=== PATIENT | female | born 1975 | race Caucasian/White ===

== ENCOUNTER → 2017-09-13 | Outpatient (CLI) | payer OTHER ==
[~2017-09-13] MED LIST: AMOXICILLIN875 MG PO; ATROVENT15 ML NS; BENTYL 20 MG TA20 M1 PO; BUSPIRONE HCL10 MG PO; CIPRO250 M1 PO; CIPROFLOXACIN500 M1 PO; FLAGYL500 MG PO; FLEXERIL PO; HYDROCODON-ACE1 EAC7 PO; HYDROCODONE-AP1 EAC6 PO; IBUPROFEN 800800 M1 PO; LEXAPRO 10 MG T10 M1 PO; MEDROLDOSEPACK PO; MELOXICAM; NOHOMEMEDICATIONS; NORCO 5-325 TA1 EACH PO; ONDANSETRON HCL4 M2 PO; PERCOCET 5-3251 EACH PO; PHENERGAN 25 MG25 M1 PO; PREDNISONE 10 M10 MG PO; PROTONIX40 M1 PO; ROXICODONE5 M2 PO; TRAMADOL 50 MG50 MG PO; ULTRAM 50MG TAB50 MG PO; ZOFRAN ODT4 MG PO; ZOFRAN ODT4 MG SUBLING
== END ==
LOC: M.MRI 13:28
DX: M48.02 Spinal stenosis, cervical region (principal); M50.21 Other cervical disc displacement, high cervical region; M50.221 Other cervical disc displacement at C4-C5 level; M50.222 Other cervical disc displacement at C5-C6 level; M50.223 Other cervical disc displacement at C6-C7 level; G89.29 Other chronic pain; M79.601 Pain in right arm; M79.602 Pain in left arm

== ENCOUNTER → 2017-09-14 | Outpatient (CLI) | payer OTHER | LOC: M.MRI 09-05 10:57 | DX: M19.011 Primary osteoarthritis, right shoulder (principal); M75.51 Bursitis of right shoulder; G89.29 Other chronic pain; M54.2 Cervicalgia ==

== ENCOUNTER 2018-03-09 23:57 | Emergency (ER) | payer OTHER ==
[~2018-03-09] VITALS: Ht 162.6 cm; Wt 99.8 kg
[~2018-03-09 23:57] MED LIST changes: -BENTYL 20 MG TA20 M1 PO; -ONDANSETRON HCL4 M2 PO; -TRAMADOL 50 MG50 MG PO
[2018-03-10 00:49] LABS: HEMATOCRIT 40.7 % (37.0-47.0); HEMOGLOBIN 13.6 gm/dL (12.0-15.0); MCH 29.8 pg (26.0-34.0); MCHC 33.4 g/dL (28.0-37.0); MCV 89.3 fL (80.0-100.0); MPV 8.6 fl. (7.2-11.1); NUCLEATED RBCS 0 /100WBC; PLATELET COUNT* 246 thou/uL (150-400); RBC 4.56 mil/uL (4.20-5.00); RDW-CV 15.2 % (10.5-14.5)
[2018-03-10 00:51] LABS: CALCIUM 8.6 mg/dL (8.5-10.1); CREATININE 0.7 mg/dL (0.6-1.3)
[2018-03-10 00:55] LABS: ALBUMIN 3.3 g/dL (3.4-5.0); TOTAL BILIRUBIN 0.3 mg/dL (<0.1-1.0)
[2018-03-10 01:37] LABS: URINE BILIRUBIN NEGATIVE (Negative); URINE BLOOD NEGATIVE (Negative); URINE CLARITY CLEAR; URINE COLOR YELLOW; URINE GLUCOSE-RANDOM NEGATIVE (Negative); URINE KETONES NEGATIVE (Negative); URINE LEUKOCYTES-REFLEX NEGATIVE (Negative); URINE NITRITE-REFLEX NEGATIVE (Negative); URINE PROTEIN NEGATIVE (Negative); URINE SPECIFIC GRAVITY >= 1.030 (1.005-1.030); URINE UROBILINOGEN 0.2 E.U./dl (0.2-1.0)
[2018-03-10 02:03] LABS: ABSOLUTE BASOPHILS 0.1 thou/uL (0.0-0.2); ABSOLUTE EOSINOPHILS 0.1 thou/uL (0.0-0.7); ABSOLUTE LYMPHOCYTES 0.6 thou/uL (0.8-5.3); ABSOLUTE MONOCYTES 0.6 thou/uL (0.0-1.2); ABSOLUTE NEUTROPHILS 7.6 thou/uL (1.6-8.1); ANISOCYTOSIS 1+; PLATELET ESTIMATE ADEQUATE
[2018-03-10] MEDS ORDERED: BENTYL 20 MG TA20 M1 PO (02:36)
[2018-03-10] MEDS ORDERED: CIPROFLOXACIN500 M1 PO (02:36)
[2018-03-10] MEDS ORDERED: FLAGYL500 MG PO (02:36)
[2018-03-10] MEDS ORDERED: ONDANSETRON HCL4 M2 PO (02:36)
[2018-03-10] MEDS ORDERED: TRAMADOL 50 MG50 MG PO (02:36)
[2018-03-10 02:50] VITALS: BP 107/68
== END 2018-03-10 02:52 | disposition home or self-care (01) ==
LOC: M.ERS 23:57
PROVIDERS: Emergency Medicine
DX: R19.7 Diarrhea, unspecified (principal); R10.13 Epigastric pain; R11.0 Nausea; Z90.89 Acquired absence of other organs; Z90.49 Acquired absence of other specified parts of digestive tract; Z98.890 Other specified postprocedural states; Z88.5 Allergy status to narcotic agent; Z88.6 Allergy status to analgesic agent

== ENCOUNTER 2018-05-30 20:42 | Inpatient (IN) | payer OTHER ==
[~2018-05-30] VITALS: Ht 162.6 cm; Wt 90.7 kg
[~2018-05-30 20:42] MED LIST changes: +BENTYL 20 MG TA20 M1 PO; +ONDANSETRON HCL4 M2 PO; +TRAMADOL 50 MG50 MG PO
[2018-05-30 20:56] VITALS: BP 133/78
[2018-05-30 21:05] LABS: URINE BILIRUBIN NEGATIVE (Negative); URINE BLOOD NEGATIVE (Negative); URINE CLARITY CLEAR; URINE COLOR YELLOW; URINE GLUCOSE-RANDOM NEGATIVE (Negative); URINE KETONES 1+ (Negative); URINE LEUKOCYTES-REFLEX NEGATIVE (Negative); URINE NITRITE-REFLEX NEGATIVE (Negative); URINE PROTEIN NEGATIVE (Negative); URINE SPECIFIC GRAVITY >= 1.030 (1.005-1.030); URINE UROBILINOGEN 0.2 E.U./dl (0.2-1.0)
[2018-05-30 21:06] LABS: ABSOLUTE BASOPHILS 0.1 thou/uL (0.0-0.2); ABSOLUTE EOSINOPHILS 0.2 thou/uL (0.0-0.7); ABSOLUTE LYMPHOCYTES 1.4 thou/uL (0.8-5.3); ABSOLUTE MONOCYTES 0.4 thou/uL (0.0-1.2); ABSOLUTE NEUTROPHILS 3.1 thou/uL (1.6-8.1); EOSINOPHILS 4.4 %; HEMATOCRIT 44.4 % (37.0-47.0); HEMOGLOBIN 14.9 gm/dL (12.0-15.0); LYMPHOCYTES 26.8 %; MCH 30.4 pg (26.0-34.0); MCHC 33.6 g/dL (28.0-37.0); MCV 90.5 fL (80.0-100.0); MONOCYTES 7.5 %; MPV 8.3 fl. (7.2-11.1); NUCLEATED RBCS 0 /100WBC; PLATELET COUNT* 283 thou/uL (150-400); POLYS 60.3 %; RDW-CV 14.2 % (10.5-14.5); WBC 5.2 thou/uL (4.0-11.0)
[2018-05-30 21:15] LABS: ANION GAP 8 mmol/L (7-16); BUN 11 mg/dL (7-18); CALCIUM 8.2 mg/dL (8.5-10.1); CHLORIDE 102 mmol/L (98-107); CO2 27 mmol/L (21-32); CREATININE 0.8 mg/dL (0.6-1.3); GLUCOSE 105 mg/dL (70-99); POTASSIUM 3.2 mmol/L (3.5-5.1); SODIUM 137 mmol/L (136-145)
[2018-05-30 21:21] LABS: ALKALINE PHOSPHATASE 71 U/L (46-116); LIPASE 177 U/L (73-393); SGOT 30 U/L (15-37); SGPT 35 U/L (30-65); TOTAL BILIRUBIN 0.3 mg/dL (<0.1-1.0); TOTAL PROTEIN 8.3 g/dL (6.4-8.2); TROPONIN-I LEVEL <0.06 ng/mL (<0.06)
[2018-05-31 03:00] VITALS: BP 112/77
[2018-05-31 09:38] VITALS: BP 115/71
--- NOTE | 2018-05-31 10:59 | EKG ---
[place] [address] ELECTROCARDIOGRAM REPORT Name: DUY UMANA Room: [place] [address] ADM IN [facility]#: [id number] Admission: 05/30/18 Attend Phys: Gurpreet Warren MD Discharge: Date of : 73 Report #: [id number] THIS REPORT FOR: //name// [facility] ED Test Date: 2018-05-30 Test Time: 21:08:25 Pat Name: DUY MONTES Department: Room: [facility] Gender: F Farmworker: TLD : 1975 Requested By: Golden Chase Order Number: [id number] : Masoud Castro Measurements Intervals [place] Rate: 63 P: 48 IN: 186 QRS: 73 QRSD: 102 T: 75 QT: 419 QTc: 429 Interpretive Statements Sinus rhythm Compared to ECG 06/06/2014 15:42:54 Sinus bradycardia no longer present Electronically Signed On 05-31-2018 10:59:22 CDT by Masoud Castro [email or web address] <ELECTRONICALLY SIGNED> By: Masoud Castro MD, [facility] 05/31/18 1059 07 07 Masoud Castro MD, [facility] /EPI
== END 2018-05-31 09:40 | disposition left against medical advice (07) | DRG 392 ==
LOC: M.ERS 20:42 → M.TBA-ER 23:03
PROVIDERS: Emergency Medicine Emergency Medical Services; ADMIT Internal Medicine
DX: K52.9 Noninfective gastroenteritis and colitis, unspecified (principal); Z98.891 History of uterine scar from previous surgery; Z98.84 Bariatric surgery status; Z90.49 Acquired absence of other specified parts of digestive tract; Z79.899 Other long term (current) drug therapy; Z88.5 Allergy status to narcotic agent; Z88.8 Allergy status to other drugs, medicaments and biological substances

== ENCOUNTER → 2020-03-01 | Outpatient (CLI) | payer OTHER | LOC: M.ULTRA 10:30 | PROVIDERS: ATTEND Nurse Practitioner | DX: M25.462 Effusion, left knee (principal); M79.605 Pain in left leg; M25.562 Pain in left knee ==